=== PATIENT | male | born 1965 | race Hispanic/Latino ===

== ENCOUNTER 2017-12-21 13:50 | Emergency (ER) | payer SELFPAY ==
[~2017-12-21] VITALS: Ht 175.3 cm; Wt 74.8 kg
[2017-12-21] MEDS ORDERED: TETANUS/DIPHTHERIA TOX ADULT 0.5 ML SYR IM ONE (14:15)
[2017-12-21] MEDS ORDERED: CLINDAMYCIN PHOS 600 MG/ 4 ML VIAL IM ONE (14:15)
[2017-12-21] MEDS ORDERED: KETOROLAC TROMETHAMINE 60 MG/2 ML VIAL IM ONE (14:30)
[2017-12-21 15:16] VITALS: BP 112/86
== END 2017-12-21 15:15 | disposition home or self-care (01) ==
LOC: ER 13:50 → FSED 15:15
DX: S61.411A Laceration without foreign body of right hand, initial encounter (principal); S61.511A Laceration without foreign body of right wrist, initial encounter; W45.8XXA Other foreign body or object entering through skin, initial encounter; Y92.008 Other place in unspecified non-institutional (private) residence as the place of occurrence of the external cause
CPT/HCPCS: 13121; 13122; 13132; 13133; 90471; 90714; 99284; J1885

== ENCOUNTER → 2018-01-01 | Emergency (ER) | payer SELFPAY ==
[~2018-01-01] VITALS: Ht 175.3 cm; Wt 74.8 kg
[~2018-01-01] MED LIST: [UNRECOGNIZED DRUG - REMARK]
== END | disposition home or self-care (01) ==
LOC: FSED 14:45
DX: Z48.01 Encounter for change or removal of surgical wound dressing (principal); E11.9 Type 2 diabetes mellitus without complications

== ENCOUNTER 2018-01-04 11:51 | Emergency (ER) | payer SELFPAY ==
[~2018-01-04] VITALS: Ht 172.7 cm; Wt 74.8 kg
[2018-01-04 20:06] VITALS: BP 108/74
== END 2018-01-04 12:50 | disposition home or self-care (01) ==
LOC: FSED 11:51
DX: Z48.02 Encounter for removal of sutures (principal)
CPT/HCPCS: 99282